=== PATIENT | male | born 1975 | race Two or more races ===

== ENCOUNTER 2017-04-06 21:33 | Emergency (ER) | payer SELFPAY ==
[~2017-04-06] VITALS: Ht 170.2 cm; Wt 74.8 kg
[2017-04-06] MEDS ORDERED: NKM (22:07)
[2017-04-06 22:22] VITALS: BP 158/98
[2017-04-06] MEDS ORDERED: chlordiazePOXIDE 25mg Cap ORAL ONE (22:30)
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
[2017-04-06 23:09] LABS: EOSINOPHILS % (AUTO) 0.1 % (0.0-3.0); LYMPHOCYTES % (AUTO) 21.5 % (20.0-45.0); MEAN CORPUSCULAR HEMOGLOBIN 31.1 PG (27.0-31.0); MEAN CORPUSCULAR HGB CONC 34.5 G/DL (32.0-36.0); MEAN CORPUSCULAR VOLUME 90 FL (80-99); MEAN PLATELET VOLUME 6.1 FL (6.5-10.1); MONOCYTES % (AUTO) 4.7 % (1.0-10.0); NEUTROPHILS % (AUTO) 72.7 % (45.0-75.0); PLATELET COUNT 234 K/UL (150-450); RED BLOOD COUNT 5.83 M/UL (4.70-6.10); RED CELL DISTRIBUTION WIDTH 11.2 % (11.6-14.8); WHITE BLOOD COUNT 5.7 K/UL (4.8-10.8)
[2017-04-06 23:22] LABS: ANION GAP 13 mmol/L (5-15); CALCIUM 8.5 MG/DL (8.5-10.1); CARBON DIOXIDE 25 MMOL/L (21-32); CHLORIDE 101 MMOL/L (98-107); CREATININE 0.9 MG/DL (0.55-1.30); GLOMERULAR FILTRATION RATE > 60 mL/min (>60); POTASSIUM 3.3 MMOL/L (3.5-5.1); SODIUM 139 MMOL/L (136-145)
[2017-04-06 23:25] VITALS: BP 142/88
[2017-04-06 23:25] LABS: ALANINE AMINOTRANSFERASE 68 U/L (12-78); ALBUMIN/GLOBULIN RATIO 1.2 (1.0-2.7); ALCOHOL 299 mg/dL; ASPARTATE AMINO TRANSFERASE 39 U/L (15-37); TOTAL PROTEIN 8.1 G/DL (6.4-8.2)
[2017-04-06 23:41] LABS: ACETAMINOPHEN < 2 MCG/ML (10-30)
[2017-04-06] MEDS ORDERED: LORazepam Inj 2mg/ml 1ml IV ONE (23:45)
[2017-04-07 01:30] VITALS: BP 138/82
[2017-04-07 04:00] VITALS: BP 132/83
[2017-04-07] MEDS ORDERED: LIBRIUM25 MG ORAL (05:54)
[2017-04-07] MEDS ORDERED: PRILOSEC OTC20 MG ORAL (05:54)
[2017-04-07 06:00] VITALS: BP 136/84
[2017-04-07] MEDS ORDERED: Mylanta II UD 30ml ORAL ONE (06:00)
[2017-04-07 06:50] VITALS: BP 136/84
== END 2017-04-07 06:50 | disposition home or self-care (01) ==
LOC: EMR 21:53
DX: F32.9 Major depressive disorder, single episode, unspecified (principal); F10.920 Alcohol use, unspecified with intoxication, uncomplicated; K29.20 Alcoholic gastritis without bleeding; I10 Essential (primary) hypertension; T76.21XA Adult sexual abuse, suspected, initial encounter
CPT/HCPCS: 36415; 80053; 80307; 85025; 96361; 96374; 99284; G0480; 80329